=== PATIENT | male | born 1960 | race Two or more races ===

== ENCOUNTER 2022-01-31 13:15 | Emergency (ER) | payer OTHER, SELFPAY ==
--- NOTE | ~2022-01-31 | CT_ITS ---
EXAMINATION: CT SOFT TISSUE NECK WITH CONTRAST CLINICAL INFORMATION: Sore throat. Question peritonsillar abscess. COMPARISON: None TECHNIQUE: Following the intravenous administration of 60 mL of Omnipaque 350 intravenous contrast, helical imaging was performed in the axial plane with generation of coronal and sagittal reformatted images. This CT examination was performed using dose optimization techniques as appropriate, variously including the following: *Automated exposure control *Adjustment of mA and/or kV according to patient size (this includes techniques or standardized protocols for targeted exams where dose is matched to indication/reason for exam; i.e. extremities or head) *Use of iterative reconstruction technique DLP: 539 mGy-cm FINDINGS: Asymmetric enlargement of the right pharyngeal tonsil relative to the left which contains a 1.5 x 1.4 x 1.2 cm low-density structure within peripheral enhancement adjacent to the tonsillar, concerning for abscess or developing abscess. Finding seen best on series 2 image 44 and coronal image 28. Normal appearance of the left tonsil which contains a couple tiny tonsilliths as well. Minimal narrowing of the posterior oropharyngeal airway. Slightly asymmetrically prominent right upper cervical lymph nodes, largest measuring 1 cm in short axis, likely reactive. No other cervical lymphadenopathy. Normal appearance of the major salivary glands and thyroid gland. Normal appearance of the cold rolling supervisor space and parapharyngeal fat. Laryngeal structures are unremarkable. Internal jugular veins enhance normally. Normal caliber aortic arch. Patent arch origins. Minimal mixed calcified noncalcified plaque in the carotid bifurcations with minimal luminal narrowing of the left ICA origin. No retropharyngeal fluid collection. Globes and retro-orbital structures are intact. Visualized intracranial contents are grossly unremarkable-limited assessment. Visualized upper lungs are clear. Mild centrilobular emphysema at the lung apices. Imaged paranasal sinuses and mastoid air cells normally aerated. Multilevel cervical spondylosis most advanced at C5-C6 and C6-C7. No acute fracture. No suspicious osseous lesion. CT/CT soft tissue neck w con IMPRESSION: 1. Right tonsillar/peritonsillar low-density collection within peripheral enhancement suspicious for abscess or developing abscess measuring 1.5 x 1.4 x 1.2 cm in size. 2. A couple of mildly enlarged right upper cervical lymph nodes, likely reactive.
[2022-01-31 13:24] VITALS: BP 138/80; PULSE 65; RESP 16; TEMP 36.7; O2SAT 98; BMI 28.2
--- NOTE | 2022-01-31 13:57 | ED_ITS ---
HPI - General Adult General Chief complaint: Upper Respiratory Symptoms Stated complaint: Throat pain/trouble swallowing Time Seen by Provider: 01/31/22 13:26 Source: patient Mode of arrival: ambulatory Limitations: no limitations History of Present Illness HPI narrative: Patient presents emergency department for evaluation of a sore throat. He states that since last night he has been having right-sided throat pain, that is now radiating into the ear. He states it is difficult to swallow due to the pain. He does report that his son with sick with cold-like symptoms about 2 weeks ago but that has resolved. He states he has been vaccinated for COVID-19. Denies fevers, chills, excessive drooling, chest pain, palpitations, shortness of breath, difficulty breathing. Related Data Previous Rx's Medication Instructions Recorded amoxicillin 875 mg-potassium 1 tab PO Q12H 7 days #14 tabs 01/31/22 clavulanate 125 mg tablet Allergies Allergy/AdvReac Type Severity Reaction Status Date / Time No Known Allergies Allergy Verified 01/31/22 13:55 Review of Systems Review of Systems: Constitutional: No weight loss. No fever. No chills. No weakness. No fatigue. Eye: No swelling. No redness. ENT: Positive sore throat. No rhinorrhea. No nasal congestion. Positive difficulty swallowing. Skin: No rash. No itching. Cardiovascular: No chest pain. No chest pressure. No palpitations. No pedal edema. Respiratory: No shortness of breath. No cough. No sputum production. Gastrointestinal: No nausea. No vomiting. No diarrhea. No abdominal pain. Genitourinary: No burning micturition. No urinary frequency. No incontinence. Neurologic: No headache. No dizziness. Musculoskeletal: No muscle pain. No back pain. No joint pain. No stiffness. Hematologic: No bleeding. No bruising. Lymphatics: Positive enlarged lymph nodes.. Yes all other systems are reviewed and are negative [facility] Past Medical History Attestation statement: The following information was validated with the patient. Source: old records reviewed Social History Social History Advance Directives: No Advance Directives Information Provided: Yes Physical Exam ED Vital Signs: Vital Signs - 24 hr 01/31/22 13:24 Temperature 98.1 F Pulse Rate 65 Respiratory Rate 16 Blood Pressure 138/80 Pulse Oximetry 98 Oxygen Delivery Method Room Air BMI result Body Mass Index 28.2 Appearance: Alert.?Oriented to person, place and time. No acute distress.?Normal affect. Head: Normocephalic, atraumatic. No head, sinus or TMJ tenderness.? Eyes: Sclera white, conjunctiva pink. PERRL, 3 mm bilaterally. Ears: Bilateral ear canals clear, TM visible with good cone of light.? Nose: Nasal mucosa pink and moist with midline septum, nares patent bilaterally.? Mouth/ Throat: Oral mucosa pink and moist without lesions. Pharynx with no exudate, mild erythema, right tonsillar hypertrophy 4+, uvula deviated towards the left, positive adenopathy.? No drooling. No trismus. Floor of mouth is soft Neck: Normal inspection.? Neck supple.?? CVS: Heart sounds normal. Normal heart rate and rhythm.? Pulses normal.?? Respiratory: No respiratory distress.? Lung sounds clear to auscultation bilaterally?? Abdomen: Soft and non-tender. Skin: Skin warm and dry.? Normal skin color.? Extremities: No lower extremity edema.? Neuro: Moves all extremities spontaneously. Sensation intact bilaterally. No motor deficits Ambulates with normal steady gait. Course Course Course Narrative: Patient is a 61-year-old male presents emergency department for evaluation of sore throat. He is overall well-appearing, in no apparent distress, vital signs are stable, managing secretions/airway, speaking in clear full sentences. Physical exam concerning for peritonsillar or retropharyngeal abscess. Will obtain basic labs and CT of the soft tissues of the neck. Does Not appear consistent with Jeremi's angina at this time. Reevaluation(s) Reevaluation #1: Serum labs are overall unremarkable, mild leukocytosis of 13.3. CT reveals right tonsillar/peritonsillar low-density collection suspicious for abscess with mildly enlarged right upper cervical lymph nodes. Dr. Vazquez, ED attending, assisted with needle aspiration for drainage. Small amount of pus was initially drained after injecting lidocaine. Patient tolerated the procedure well, no complications. Maintaining airway/secretions after, speaking clear full sentences. Discussed plan of care for discharge home, will prescribe a course of Augmentin, patient will follow-up with primary care provider, discussed worrisome signs and symptoms to return back to the emergency department for. All questions were answered. Procedures Abscess I/D Site: oral Side (if applicable): right Local Anesthetic: lidocaine 1% Amount of anesthesia used (mL): 2 Technique: needle aspiration Packing used?: none Medical Decision Making Medical Records Medical records reviewed: Yes I reviewed the patient's medical records. Lab Data Lab results reviewed: Yes I reviewed the patient's lab results. Result diagrams: 01/31/22 14:43 01/31/22 16:34 Labs: Lab Results 01/31/22 01/31/22 01/31/22 Range/Units 13:34 14:43 16:34 WBC 13.3 H (4.8-10.8) X10*3/uL RBC 5.39 (4.60-5.80) X10*6/uL Hgb 15.5 (14.0-18.0) g/dl Hct 45.5 (42.0-52.0) % MCV 84.4 (80.0-98.0) fL MCH 28.8 (27.0-33.0) pg MCHC 34.1 (31.0-36.0) g/dl RDW 12.7 (11.0-16.0) % Plt Count 201 (160-400) X10*3/uL MPV 10.4 (9.4-12.4) fL Immature Gran % (Auto) 0.2 (0.0-0.4) % Neut % (Auto) 71.8 (45-73) % Lymph % (Auto) 21.5 (20-40) % [place] % (Auto) 5.6 (2-11) % Eos % (Auto) 0.6 (0-4) % Baso % (Auto) 0.3 (0-2) % Lymph # (Auto) 2.9 (1.2-4.9) X10*3/uL [place] # (Auto) 0.8 (0.1-1.2) X10*3/uL Eos # (Auto) 0.1 (0.0-0.4) X10*3/uL Baso # (Auto) 0.0 (0.0-0.2) X10*3/uL Abs Immat Gran (auto) 0.03 (0.00-0.03) X10*3/uL Absolute Neuts (auto) 9.6 H (2.0-8.3) x10*3/uL Absolute Nucleated RBC 0.000 (0.0-0.012) X10*3/uL Nucleated RBC % (auto) 0.0 (0.0-0.2) /100WBC Sodium 139 (135-145) mmol/L Potassium 4.4 (3.3-5.1) mmol/L Chloride 107 (96-108) mmol/L Carbon Dioxide 19 L (22-29) mmol/L Anion Gap 17 (12-20) BUN 17 H (9-16) mg/dL Creatinine 0.77 (0.5-1.4) mg/dL Estim Creat Clear Calc 102.3 Estimated GFR > 60 Random Glucose 89 (60-115) mg/dL Calcium 8.6 (8.4-10.2) mg/dL Total Bilirubin 0.8 (0.0-1.0) mg/dL AST 30 (5-37) U/L ALT 23 (0-40) U/L Alkaline Phosphatase 71 (39-117) U/L Total Protein 7.0 (6.5-8.0) g/dL Albumin 4.1 (3.5-5.0) g/dL S. pyogenes GrpA MICHELLE Negative (Negative) Imaging Data CT neck: Radiologist's impression: CT/CT soft tissue neck w con IMPRESSION: ? 1. Right tonsillar/peritonsillar low-density collection within peripheral enhancement suspicious for abscess or developing abscess measuring 1.5 x 1.4 x 1.2 cm in size. 2. A couple of mildly enlarged right upper cervical lymph nodes, likely reactive. ? Discharge Plan Discharge Clinical Impression: Abscess, peritonsillar Patient Disposition: Home, Self-Care Instructions: Peritonsillar Abscess (ED) Additional Instructions: You have been given a prescription for Augmentin this is an antibiotic please complete this entire course. As we discussed you may continue to have drainage or bleeding after this procedure which is normal. Return to emergency department with any new or significantly worsening symptoms or concerns. Contact your primary care provider and arrange for follow-up visit within 3 days. Prescriptions: New amoxicillin-pot clavulanate 875-125 mg tablet 1 tab PO Q12H 7 Days Qty: 14 0RF
[2022-01-31 14:01] LABS: Strep A Nucleic Acid Negative (Negative)
[2022-01-31 14:47] LABS: MANUAL DIFF FLAG NO
[2022-01-31 14:48] LABS: Basophils Percent Auto 0.3 % (0-2); Eosinophils Absolute Auto 0.1 X10*3/uL (0.0-0.4); Eosinophils Percent Auto 0.6 % (0-4); Hematocrit 45.5 % (42.0-52.0); Hemoglobin 15.5 g/dl (14.0-18.0); Imm Gran Abs Auto 0.03 X10*3/uL (0.00-0.03); Imm Gran Pct Auto 0.2 % (0.0-0.4); Lymphocytes Absolute Auto 2.9 X10*3/uL (1.2-4.9); Lymphocytes Percent Auto 21.5 % (20-40); Mean Corpuscular HGB Conc 34.1 g/dl (31.0-36.0); Mean Corpuscular Hemoglobin 28.8 pg (27.0-33.0); Mean Corpuscular Volume 84.4 fL (80.0-98.0); Mean Platelet Volume 10.4 fL (9.4-12.4); Monocytes Absolute Auto 0.8 X10*3/uL (0.1-1.2); Monocytes Percent Auto 5.6 % (2-11); Neutrophils Absolute Auto 9.6 x10*3/uL (2.0-8.3); Neutrophils Percent Auto 71.8 % (45-73); Platelet Count 201 X10*3/uL (160-400); Red Blood Count 5.39 X10*6/uL (4.60-5.80); Red Cell Distribution Width 12.7 % (11.0-16.0); White Blood Count 13.3 X10*3/uL (4.8-10.8)
[2022-01-31 17:18] LABS: Alanine Aminotransferase 23 U/L (0-40); Albumin Level 4.1 g/dL (3.5-5.0); Alkaline Phosphatase 71 U/L (39-117); Anion Gap 17 (12-20); Aspartate Amino Transferase 30 U/L (5-37); Bilirubin Total 0.8 mg/dL (0.0-1.0); Blood Urea Nitrogen 17 mg/dL (9-16); Calcium 8.6 mg/dL (8.4-10.2); Carbon Dioxide 19 mmol/L (22-29); Chloride 107 mmol/L (96-108); Creatinine Clr Calc Pharmacy 102.3; Estimated Glomerular Filt Rate > 60; Glucose Random 89 mg/dL (60-115); Potassium 4.4 mmol/L (3.3-5.1); Sodium 139 mmol/L (135-145)
[2022-01-31] MEDS: iohexoL 350 MG/ML 100 ML INFUS..BTL IV (17:34)
[2022-01-31] MEDS: Lidocaine HCl 1 % MPF 2 ML VIAL INFILTRATI (18:41)
== END 2022-01-31 19:37 | disposition home or self-care (01) ==
PROVIDERS: Nurse Practitioner Family; Emergency Provider Emergency Medicine
DX: J36 Peritonsillar abscess (principal)
CPT/HCPCS: 36415; 42700; 70491; 80053; 85025; 87651; 99283; 99284; Q9967